=== PATIENT | female | born 1955 | race Caucasian/White ===

== ENCOUNTER 2017-01-29 14:14 | Emergency (ER) | payer MEDICAID ==
[2017-01-29 15:00] LABS: BILIRUBIN,URINE NEGATIVE (NEGATIVE)
[2017-01-29 15:02] LABS: UA w/ MICROSCOPIC CHARGE YES
[2017-01-29 15:21] LABS: UR CULTURE IF IND NOT INDICATED; WBC,URINE 0-3 /HPF (0-5)
--- NOTE | 2017-01-29 15:47 | ED Physician Documentation ---
PD HPI ABD PAIN - Stated complaint Stated Complaint: UTI - Chief complaint Chief Complaint: UTI - History obtained from History obtained from: Patient - History of Present Illness Timing - onset: How many weeks ago (1) Timing - duration: Weeks (1) Timing - details: Gradual onset, Waxing and waning Quality: Cramping, Aching Location: RLQ, Suprapubic Radiation: Right flank Associated symptoms: Nausea, Dysuria. No: Fever, Vomiting, Constipation, Melena , Hematuria Similar symptoms before: Diagnosis (UTIs) Recently seen: Not recently seen Review of Systems Constitutional: denies: Fever, Chills Throat: denies: Sore throat Respiratory: denies: Cough GI: reports: Nausea. denies: Vomiting, Constipation, Diarrhea : reports: Dysuria, Frequency. denies: Discharge Skin: denies: Rash, Lesions Neurologic: denies: Generalized weakness, Headache PD PAST MEDICAL HISTORY - Past Medical History Cardiovascular: Hypertension Respiratory: Asthma : Chronic bladder infection Musculoskeletal: Osteoarthritis, Fibromyalgia - Past Surgical History General: Cholecystectomy Ortho: Hip replacement, Spine surgery, Other - Allergies Allergies/Adverse Reactions: Allergies Allergy/AdvReac Type Severity Reaction Status Date / Time adhesive Allergy Unknown Verified 01/29/17 14:33 ampicillin Allergy Unknown Verified 01/29/17 14:33 clarithromycin [From Biaxin] Allergy Unknown Verified 01/29/17 14:33 meperidine HCl * Allergy Unknown Verified 01/29/17 14:33 [From Demerol] nickel Allergy Unknown Verified 01/29/17 14:33 PD ED PE NORMAL - Vitals Vital signs reviewed: Yes - General General: Alert and oriented X 3, No acute distress, Well developed/nourished - Abdomen Abdomen: Normal bowel sounds, Soft, Non distended, No organomegaly, Other (mild tender RLQ and suprapubic without guarding nor percussion tender.) - Female Female : Deferred - Rectal Rectal: Deferred - Back Back: No CVA TTP - Derm Derm: Normal color, Warm and dry Results - Vitals Vitals: Oxygen O2 Source Room air - Labs Labs: Laboratory Tests 01/29/17 01/29/17 01/29/17 14:43 16:40 16:40 WBC 9.4 RBC 4.59 Hgb 13.3 Hct 40.8 MCV 89.0 MCH 29.0 MCHC 32.6 RDW 13.1 Plt Count 297 MPV 8.4 Neut # 5.5 Lymph # 3.0 Sunflower # 0.6 Eos # 0.2 Baso # 0.1 Absolute Nucleated RBC 0.01 Nucleated RBCs 0.1 Sodium 137 Potassium 4.1 Chloride 103 Carbon Dioxide 26 Anion Gap 8.0 BUN 18 Creatinine 1.1 H Estimated GFR (MDRD) 51 L Glucose 97 Calcium 9.1 Total Bilirubin 0.5 AST 26 ALT 28 Alkaline Phosphatase 107 Total Protein 7.9 Albumin 4.2 Globulin 3.7 Albumin/Globulin Ratio 1.1 Lipase 31 Urine Color YELLOW Urine Clarity CLEAR Urine pH 6.0 Ur Specific [place] <=1.005 Urine Protein NEGATIVE Urine Glucose (UA) NEGATIVE Urine Ketones NEGATIVE Urine Occult Blood SMALL H Urine Nitrite NEGATIVE Urine Bilirubin NEGATIVE Urine Urobilinogen 0.2 (NORMAL) Ur Leukocyte Esterase NEGATIVE Urine RBC 0-5 Urine WBC 0-3 Ur Squamous Epith Cells FEW Squamous Urine Bacteria Rare Ur Microscopic Review INDICATED Urine Culture Comments NOT INDICATED - Rads (name of study) abd CT Radiology: Prelim report reviewed (no stones, normal appendix) PD MEDICAL DECISION MAKING - ED course Complexity details: considered differential (she had symptoms similar to UTIs. No UTI on UA but can await culture. She likely has some IC instead of infection. Does have the pain RLQ/lower abd so CT done to ensure not appendix/ stone/etc. This was without positive findings. ), d/w patient Departure - Departure Disposition: 01 Home, Self Care Clinical Impression: Abdominal pain, lower Clinical Impression: (Ruled Out): Urinary tract infection Condition: Stable Record reviewed to determine appropriate education?: Yes Instructions: ED Abdominal Pain Unkn Cause Follow-Up: Tiffanie Luke MD [Primary Care Provider] - Comments: Continue usual medications. Recheck if further problems develop. Discharge Date/Time: 01/29/17 18:31
[2017-01-29 16:45] LABS: BASOPHILS # (AUTO) 0.1 10^3/uL (0.0-0.1); BASOPHILS % (AUTO) 0.5 %; EOSINOPHILS # (AUTO) 0.2 10^3/uL (0.0-0.7); EOSINOPHILS % (AUTO) 1.7 %; HCT - HEMATOCRIT 40.8 % (37.0-47.0); HGB - HEMOGLOBIN 13.3 g/dL (12.0-16.0); LYMPHOCYTES % (AUTO) 31.8 %; MEAN CORPUSCULAR HGB CONC 32.6 g/dL (32.0-36.0); MEAN PLATELET VOLUME 8.4 fL (7.9-10.8); MONOCYTES # (AUTO) 0.6 10^3/uL (0.0-1.0); MONOCYTES % (AUTO) 6.9 %; NEUTROPHILS # (AUTO) 5.5 10^3/uL (1.5-6.6); NEUTROPHILS % (AUTO) 59.1 %; NUCLEATED RED BLOOD CELLS AUTO 0.1 /100WBC; RED BLOOD COUNT 4.59 10^6/uL (4.20-5.40); RED CELL DISTRIBUTION WIDTH 13.1 % (12.0-15.0); UNCORRECTED WHITE BLOOD COUNT 9.4 x10^3/uL; WHITE BLOOD COUNT 9.4 x10^3/uL (4.8-10.8)
[2017-01-29 16:58] LABS: ALBUMIN/GLOBULIN RATIO 1.1 (1.0-2.2); BILIRUBIN,TOTAL 0.5 mg/dL (0.2-1.0); CALCIUM 9.1 mg/dL (8.5-10.3); CREATININE 1.1 mg/dL (0.4-1.0); POTASSIUM 4.1 mmol/L (3.5-5.0); TOTAL PROTEIN 7.9 g/dL (6.7-8.2)
--- NOTE | 2017-01-29 17:20 | CT Preliminary Report ---
Exam: CT KUB IMPRESSION: 1. Normal appendix. 2. Calcified granulomas in the liver and spleen. 3. Cholecystectomy and hysterectomy noted. 4. Advanced degenerative disk disease at L5-S1. [facility] SITE ID: [id number]
--- NOTE | 2017-01-29 17:22 | CT Report ---
EXAM: CT ABDOMEN AND PELVIS EXAM DATE: 01/29/2017 04:56 PM. CLINICAL HISTORY: RLQ pain for a week, some to back. COMPARISONS: None. TECHNIQUE: Routine helical CT imaging was performed through the abdomen and pelvis. IV contrast: None . Enteric contrast: No. Reconstructions: Coronal and sagittal. In accordance with CT protocol optimization, one or more of the following dose reduction techniques w ere utilized for this exam: automated exposure control, adjustment of mA and/or KV based on patient s ize, or use of iterative reconstructive technique. FINDINGS: Lung Bases: Unremarkable. Liver: Calcified granuloma, otherwise unremarkable. Gallbladder/Bile Ducts: Cholecystectomy. No ductal dilatation. Spleen: Multiple calcified granulomas, otherwise unremarkable. Pancreas: Normal. Adrenal Glands: Normal. Kidneys: Normal. No masses or hydronephrosis. Peritoneal Cavity/Bowel: Normal. No free fluid, free air or adenopathy. No masses or acute inflammato ry process. The appendix is well visualized and normal. Pelvic Organs: Hysterectomy. Bladder unremarkable. Vasculature: No aneurysms or other significant abnormality. Bones: Advanced degenerative disk disease at L5-S1. Lower lumbar facet arthropathy. Left hip arthropl asty noted. Other: Small fat-containing umbilical hernia noted. IMPRESSION: 1. Normal appendix. 2. Calcified granulomas in the liver and spleen. 3. Cholecystectomy and hysterectomy noted. 4. Advanced degenerative disk disease at L5-S1. [facility] Referring Provider Line: [phone] SITE ID: [id number]
[2017-01-29 18:31] VITALS: BP 133/82
== END 2017-01-29 18:31 | disposition home or self-care (01) ==
LOC: ED 14:14
DX: R10.30 Lower abdominal pain, unspecified (principal); R11.0 Nausea; R30.0 Dysuria; I10 Essential (primary) hypertension; J45.909 Unspecified asthma, uncomplicated; M79.7 Fibromyalgia
CPT/HCPCS: 36415; 74176; 80053; 81001; 81003; 83690; 85025; 87086; 99283